=== PATIENT | female | born 1955 | race Caucasian/White ===

== ENCOUNTER 2017-06-11 13:59 | Outpatient (RCR) | payer MEDICARE, BC ==
[~2017-06-11 13:59] MED LIST: AMITRIPTYLINE100 MG PO; AUGMENTIN 875-1 EACH PO; CHERATUSSIN AC118 ML PO; LISINOPRIL10 MG PO; MORPHINE SULFAT30 M2 PO; NORCO 10MG-325MG1 EA PO; PROAIR HFA INH8.5 GM INH; REQUIP1 MG PO; REQUIP5 MG PO; SYNTHROID100 MCG PO; SYNTHROID125 MCG PO; TESSALON PERLE100 MG PO
== END 2017-06-13 ==
LOC: PT 13:59
PROVIDERS: ATTEND Specialist
DX: M25.551 Pain in right hip (principal); M16.11 Unilateral primary osteoarthritis, right hip; M70.61 Trochanteric bursitis, right hip
CPT/HCPCS: 97161; G8978; G8979

== ENCOUNTER → 2017-07-06 | Outpatient (CLI) | payer MEDICARE, BC ==
--- NOTE | 2017-07-06 08:52 | Diagnostic Imaging Report ---
PROCEDURE: Frontal and lateral views of the chest. COMPARISON: Chest 2 views 10/22/2016. INDICATIONS: PNEUMONIA FINDINGS: Lines/tubes: Partially visualized anterior cervical spine fusion hardware. Metallic lead projecting over the cervical spine. Lungs: The lungs are well inflated and clear. There is no evidence of pneumonia or pulmonary edema. Pleura: There is no pleural effusion or pneumothorax. Heart and mediastinum: The heart and the mediastinum are normal. Bones: No acute bony abnormality. Degenerative changes of the thoracic spine. IMPRESSION: No acute radiographic abnormality. Dictated by: Igor Smith M.D. on 07/06/2017 at 8:51 Electronically approved by: Igor Smith M.D. on 07/06/2017 at 8:51
== END ==
LOC: RAD 07:52
PROVIDERS: ATTEND Otolaryngology
DX: J18.9 Pneumonia, unspecified organism (principal)
CPT/HCPCS: 71046

== ENCOUNTER 2017-08-03 07:00 | Outpatient (RCR) | payer MEDICARE, BC | END 2017-08-11 | LOC: PT 07:00 | PROVIDERS: ATTEND Specialist | DX: M16.11 Unilateral primary osteoarthritis, right hip (principal); M25.551 Pain in right hip; M70.61 Trochanteric bursitis, right hip; R26.2 Difficulty in walking, not elsewhere classified; M62.81 Muscle weakness (generalized) | CPT/HCPCS: 97110 ×8; 97140 ×6; 97164; G8978; G8979 ==

== ENCOUNTER 2017-08-14 08:05 | Outpatient (RCR) | payer MEDICARE, BC | END 2017-09-10 | LOC: PT 08:05 | PROVIDERS: ATTEND Specialist | DX: M25.551 Pain in right hip (principal); M16.11 Unilateral primary osteoarthritis, right hip; M70.61 Trochanteric bursitis, right hip; M25.562 Pain in left knee; R26.2 Difficulty in walking, not elsewhere classified; M62.81 Muscle weakness (generalized) | CPT/HCPCS: 97110; 97139; 97140; G8981; G8982 ==

== ENCOUNTER → 2017-09-12 | Day surgery (SDC) | payer MEDICARE, BC ==
[~2017-09-12] MED LIST changes: +BUPIVACAINE 0.5%/EPI 30 ML SDV INJ ONE; +CEFAZOLIN SOD 2 GM/D5W 50ML 50 ML IV ONE; +DEXAMETHASONE SOD PHOS INJ 4 MG/ML VIAL ONE; +FAMOTIDINE 20 MG/2 ML VIAL IV ONE; +FENTANYL CITRATE/PF 100MCG/2 ML INJ ONE; +KETOROLAC TROMETHAMINE 30 MG/ML VIAL ONE; +LIDOCAINE HCL 2% LOCAL INJ 5 ML SDV VIAL INJ ONE; +METOCLOPRAMIDE HCL 10 MG/2ML VIAL ONE; +MIDAZOLAM HCL 2 MG/2 ML VIAL ONE; +ONDANSETRON HCL INJ 2 MG/ML VIAL ONE; +PROPOFOL IV EMULSION 10 MG/ML 20 ML VIAL ONE; +SEVOFLURANE INHAL SOLN 250 ML PEN BTL ONE
--- OUTSIDE RECORDS SUMMARY | 2017-09-12 07:43 | XMS REPORT ---
Author Author [facility] Address Unknown Phone Unavailable Care Team Providers Care News Cameraman Name Role Phone TYLER GOYAL Unavailable Unavailable Problems This patient has no known problems. Allergies, Adverse Reactions, Alerts This patient has no known allergies or adverse reactions. Medications This patient has no known medications. Results Test Description Test Time Test Comments Text Results Atomic Results Result Comments CHEST 2 VIEWS [place] [address] Patient Name: CRYSTAL MURILLO MR #: [id number] : 1955 Age/Sex: 61/F Req # : [id number] Adm Physician: Ordered by: JYOTSNA PINEDA, TYLER PINEDA Report #: [id number] Location: RAD Room/Bed: Procedure: [id number] DX/CHEST 2 VIEWS Exam Date: 07/06/17 Exam Time : 0805 REPORT STATUS: Signed PROCEDURE: Frontal and lateral views of the chest. COMPARISON: Chest 2 views 10/22/2016. INDICATIONS: PNEUMONIA FINDINGS: Lines/tubes: Partially visualized anterior cervical spine fusion hardware. Metallic lead projecting over the cervical spine. Lungs: The lungs are well inflated and clear. There is no evidence of pneumonia or pulmonary edema. Pleura: There is no pleural effusion or pneumothorax. Heart and mediastinum: The heart and the mediastinum are normal. Bones: No acute bony abnormality. Degenerative changes of the thoracic spine. IMPRESSION: No acute radiographic abnormality. Dictated by: Latesha Alvarez M.D. on 07/06/2017 at 8:51 Electronically approved by: Latesha Alvarez M.D. on 07/06/2017 at 8:51 Dictated By: LATESHA ALVAREZ MD 0 Transcribed By: ALICJA on 07/06/17850 COPY TO : TYLER GOYAL
--- OUTSIDE RECORDS SUMMARY | 2017-09-12 07:43 | XMS REPORT | Continuity of Care Document ---
Author Author [facility] Organization [facility] Address [address] [place] [address] Phone Unavailable Care Team Providers Care Pilot Supervisor Name Role Phone RJ EMERSON MD PCP Insurance Providers Guarantor Bina Fernando Address [address] [place] [address] Email [email or web address] Policy Number [id number] Subscriber's Name Bina Fernando Relationship 18 Self / Same As Patient Group Number [id number] Effective Date 17 Payer Medicare A & B Policy Number [id number] Subscriber's Name Bina Fernando Relationship 18 Self / Same As Patient Group Number [id number] Group Name RETIRED Effective Date 08 Advance Directives Directive Response Recorded Date/Time Does the patient have an advance directive? Yes 07/31/16 10:53am If yes, is advance directive on file with [facility]? No 05/05/15 3:00pm If not on file with [facility] will patient provide a copy? Yes 10/22/16 6:43am Do you have a Directive to Physician? Yes 08/14/17 8:03am Do you have a Medical Power of Post Form Remover? Yes 08/14/17 8:03am Do you have an out of hospital Do Not Resuscitate Order? No 08/14/17 8:03am Do you have any special needs we should be aware of? No 08/14/17 8:03am Do you have a support person here with you today? No 08/14/17 8:03am Did patient receive Notice of Privacy Practices? No 08/14/17 8:03am Did patient receive patient rights and responsibilities? No 08/14/17 8:03am Problems Medical Problem Onset Date Status Chest wall pain Unknown Acute Pneumonia 09/15/2014 Acute Medications Current Home Medications Medication Dose Units Route Directions Days Qty Instructions Start Date Amitriptyline Hcl 100 Mg Tablet 100 Mg Oral Bedtime Levothyroxine Sodium (Synthroid) 125 Mcg Tab 125 Mcg Oral Daily 30 Tab Lisinopril 10 Mg Tablet 10 Mg Oral Daily 30 Tab Ropinirole Hcl (Requip) 5 Mg Tablet 10 Mg Oral Daily Past Home Medications Medication Directions Ordered Status Acetaminophen/Hydrocodone Bitart ([place] 10MG-325MG*) 1 Ea Tab, 1 Tab Oral Four Times Daily as needed for Pain Discontinued Albuterol Sulfate (Proair Hfa Inhaler*) 8.5 Gm Inh, 1 Inh Inhalation Every 4 Hours as needed for Wheezing Discontinued Amoxicillin/Potassium Clav (Augmentin 875-125 Tablet) 1 Each Tablet, 875 Mg Oral Twice A Day Discontinued Benzonatate (Tessalon Perle) 100 Mg Capsule, 100 Mg Oral Every 6 Hours as needed for Cough Discontinued Guaifenesin/Codeine Phosphate (Cheratussin Ac Syrup) 118 Ml Liquid, 5 Ml Oral Every 4 Hours as needed for Cough Discontinued Levothyroxine Sodium (Synthroid) 100 Mcg Tab, 100 Mcg Oral Daily Discontinued Morphine Sulfate (Morphine Sulfate Er) 30 Mg Tablet.er, 30 Mg Oral Daily as needed for Pain Discontinued Ropinirole Hcl (Requip) 1 Mg Tablet, Unknown Dose Oral Three Times A Day Discontinued Social History Social History Problem Response Recorded Date/Time Onset Date Status Hx Psychiatric Problems No 09/15/2014 3:00pm Not Applicable Not Applicable Hx Eating Disorder No 09/15/2014 3:00pm Not Applicable Not Applicable Hx Substance Use Disorder No 09/15/2014 3:00pm Not Applicable Not Applicable Hx Depression No 09/15/2014 3:00pm Not Applicable Not Applicable Hx Alcohol Use No 09/15/2014 3:00pm Not Applicable Not Applicable Hx Substance Use Treatment No 09/15/2014 3:00pm Not Applicable Not Applicable Hx Physical Abuse No 09/15/2014 3:00pm Not Applicable Not Applicable Hospital Discharge Instructions No hospital discharge instruction information available. Plan of Care Prescriptions See Medication Section Functional Status No functional status information available. Allergies, Adverse Reactions, Alerts Allergen Type Severity Reaction Status Last Updated No Known Drug Allergies Allergy Unknown Active 10/08/08 Immunizations No immunization information available. Vital Signs No vital sign information available. Results No relevant diagnostic test, laboratory data and/or discharge summary information available. Procedures Procedure Status Date Provider(s) SIGMOIDOSCOPY & POLYPECTOMY Completed 11/20/16 DHRUV STERN MD X-ray of chest, two views Active 07/06/17 TYLER GOYAL Encounters Encounter Location Arrival/Admit Date Discharge/Depart Date Attending Provider Discharged [facility]ring [facility] 08/14/17 8:05am 09/10/17 11:59pm BRIAN MCKEON MD Discharged [facility]ring [facility] 07/12/17 4:32pm 08/11/17 11:59pm BRIAN MCKEON MD Registered Clinic [facility] 07/06/17 7:52am TYLER GOYAL Discharged [facility]ring [facility] 06/11/17 1:59pm 06/13/17 11:59pm BRIAN MCKEON MD Registered Clinic [facility] 12/25/16 1:16pm RJ EMERSON MD Discharged [facility]ring [facility] 12/13/16 2:03pm 01/11/17 11:59pm BRIAN MCKEON MD Registered Surgical Day Care [facility] 11/20/16 6:01am DHRUV STERN MD Discharged [facility]ring [facility] 11/16/16 2:03pm 12/11/16 11:59pm BRIAN MCKEON MD
--- NOTE | 2017-09-13 05:59 | Operative Report ---
DATE OF PROCEDURE: September 12, 2017 PREOPERATIVE DIAGNOSES 1. Left knee medial meniscus tear. 2. Left knee degenerative joint disease of the knee. POSTOPERATIVE DIAGNOSES 1. Left knee medial meniscus tear. 2. Left knee degenerative joint disease of the knee. OPERATIONS/PROCEDURES PERFORMED 1. The patient underwent a left knee examination under anesthesia. 2. Left knee arthroscopy. 3. Left knee partial medial meniscectomy. 4. Left knee chondroplasty of the patella, the trochlea, the medial femoral condyle, the medial tibial plateau, the lateral femoral condyle, and lateral tibial plateau. COMMUNITY HEALTH SPECIALIST: None. ANESTHESIA: General endotracheal intubation anesthesia. IV FLUIDS: Per the anesthesia record. BRIEF DESCRIPTION OF THE PATIENT'S OPERATIVE PROCEDURE: Ms. Fernando was taken to the operating room and placed in the supine position on the operating table. Following induction of general anesthesia, as well as endotracheal intubation, the patient's left lower extremity was examined under anesthesia. She was found to have a moderate effusion within the knee joint. Motion of the knee joint was full. The ligaments were stable. The patient's lower extremity was prepped and draped in the standard surgical fashion. A 2-portal technique used to provide this patient arthroscopic evaluation of the knee joint. The scope was placed within the knee joint atraumatically. 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 There were no loose bodies in the medial or lateral gutters. The scope was advanced in the medial compartment. Examination of the medial compartment demonstrated a torn and macerated medial meniscus. There was also chondromalacia of the articulating surfaces. A combination of biting forceps and motorized shaver were used to resect the torn portion of the meniscus. Chondroplasties of the medial femoral condyle and medial tibial plateau were performed at this time. The scope was advanced to the intercondylar notch. The anterior cruciate ligament was identified and found to be intact. Scope was then advanced into the lateral compartment. Examination of the lateral compartment demonstrated chondromalacia of the articulating surfaces. Chondroplasties of the lateral femoral condyle and lateral tibial plateau were performed at this time. Scope was then placed in the suprapatellar pouch, and chondroplasty of the patella and trochlea were performed. The knee was then deflated of its normal saline. Each of the portal sites were closed using 4-0 nylon suture. The portal sites as well as the knee itself were then injected with 0.5% Marcaine with epinephrine. Sterile dressings were applied. The patient was then awakened and taken to the postanesthesia care unit in stable condition. Job#: [id number] CEZAR
== END | disposition home or self-care (01) ==
LOC: OR 07:41
PROVIDERS: ATTEND Specialist
DX: S83.262A Peripheral tear of lateral meniscus, current injury, left knee, initial encounter (principal); M17.12 Unilateral primary osteoarthritis, left knee; K21.9 Gastro-esophageal reflux disease without esophagitis; J45.909 Unspecified asthma, uncomplicated; I10 Essential (primary) hypertension; K58.9 Irritable bowel syndrome, unspecified
CPT/HCPCS: 29881; G0289; 93005; J1100; J1885; J2001; J2250; J2405; J2765

== ENCOUNTER 2017-10-16 11:13 | Outpatient (RCR) | payer MEDICARE, BC ==
[~2017-10-16 11:13] MED LIST changes: -BUPIVACAINE 0.5%/EPI 30 ML SDV INJ ONE; -CEFAZOLIN SOD 2 GM/D5W 50ML 50 ML IV ONE; -DEXAMETHASONE SOD PHOS INJ 4 MG/ML VIAL ONE; -FAMOTIDINE 20 MG/2 ML VIAL IV ONE; -FENTANYL CITRATE/PF 100MCG/2 ML INJ ONE; -KETOROLAC TROMETHAMINE 30 MG/ML VIAL ONE; -LIDOCAINE HCL 2% LOCAL INJ 5 ML SDV VIAL INJ ONE; -METOCLOPRAMIDE HCL 10 MG/2ML VIAL ONE; -MIDAZOLAM HCL 2 MG/2 ML VIAL ONE; -ONDANSETRON HCL INJ 2 MG/ML VIAL ONE; -PROPOFOL IV EMULSION 10 MG/ML 20 ML VIAL ONE; -SEVOFLURANE INHAL SOLN 250 ML PEN BTL ONE
== END 2017-11-10 ==
LOC: PT 11:13
PROVIDERS: ATTEND Specialist
DX: M25.562 Pain in left knee (principal); M25.662 Stiffness of left knee, not elsewhere classified; M25.462 Effusion, left knee; M62.81 Muscle weakness (generalized)
CPT/HCPCS: 97010; 97110; 97162; G8978; G8979; 97139

== ENCOUNTER 2017-12-07 14:00 | Outpatient (RCR) | payer MEDICARE, BC | END 2017-12-11 | LOC: PT 14:00 | PROVIDERS: ATTEND Specialist | DX: M25.562 Pain in left knee (principal); M25.462 Effusion, left knee; M25.662 Stiffness of left knee, not elsewhere classified; M62.81 Muscle weakness (generalized) | CPT/HCPCS: 97110 ×7; 97139; 97140; G8978; G8979 ==

== ENCOUNTER 2017-12-18 15:09 | Outpatient (RCR) | payer MEDICARE, BC | END 2018-01-11 | LOC: PT 15:09 | PROVIDERS: ATTEND Specialist | DX: M25.562 Pain in left knee (principal); M25.462 Effusion, left knee; M25.662 Stiffness of left knee, not elsewhere classified; M62.81 Muscle weakness (generalized) | CPT/HCPCS: 97110; 97139; G8978; G8979 ==

== ENCOUNTER 2018-03-26 14:00 | Outpatient (RCR) | payer BC, MEDICARE | END 2018-04-12 | LOC: PT 14:00 | PROVIDERS: ATTEND Specialist | DX: M25.562 Pain in left knee (principal); M25.662 Stiffness of left knee, not elsewhere classified; M62.81 Muscle weakness (generalized); R26.9 Unspecified abnormalities of gait and mobility | CPT/HCPCS: 97110; 97162; G8978; G8979 ==

== ENCOUNTER 2018-06-26 15:15 | Outpatient (RCR) | payer MEDICARE | END 2018-07-11 | LOC: PT 15:15 | PROVIDERS: ATTEND Internal Medicine | DX: M17.12 Unilateral primary osteoarthritis, left knee (principal); M25.562 Pain in left knee; M25.662 Stiffness of left knee, not elsewhere classified; M62.81 Muscle weakness (generalized) ==

== ENCOUNTER 2018-08-08 10:00 | Outpatient (RCR) | payer MEDICARE | END 2018-08-11 | LOC: PT 10:00 | PROVIDERS: ATTEND Internal Medicine | DX: M25.562 Pain in left knee (principal); M25.662 Stiffness of left knee, not elsewhere classified; M62.81 Muscle weakness (generalized) ==

== ENCOUNTER 2018-09-03 15:15 | Outpatient (RCR) | payer MEDICARE, OTHER | END 2018-09-10 | LOC: PT 15:15 | PROVIDERS: ATTEND Internal Medicine | DX: M25.562 Pain in left knee (principal); M25.662 Stiffness of left knee, not elsewhere classified; M62.81 Muscle weakness (generalized) ==

== ENCOUNTER → 2018-10-11 | Outpatient (RCR) | payer MEDICARE, OTHER | LOC: PT 09-13 14:09 | PROVIDERS: ATTEND Internal Medicine | DX: M25.562 Pain in left knee (principal); M25.662 Stiffness of left knee, not elsewhere classified; M62.81 Muscle weakness (generalized) | CPT/HCPCS: 97139 ==

== ENCOUNTER → 2019-02-10 | Outpatient (RCR) | payer MEDICARE, OTHER | LOC: PT 02-03 14:19 | PROVIDERS: ATTEND Specialist | DX: M25.551 Pain in right hip (principal); M70.61 Trochanteric bursitis, right hip; M54.5 Low back pain; M62.81 Muscle weakness (generalized) ==

== ENCOUNTER 2019-03-05 16:55 | Outpatient (RCR) | payer MEDICARE, OTHER | END 2019-03-13 | LOC: PT 16:55 | PROVIDERS: ATTEND Specialist | DX: M25.551 Pain in right hip (principal); M70.61 Trochanteric bursitis, right hip; M54.5 Low back pain; M62.81 Muscle weakness (generalized) ==

== ENCOUNTER 2019-03-25 15:07 | Outpatient (RCR) | payer MEDICARE, OTHER | END 2019-04-12 | LOC: PT 15:07 | PROVIDERS: ATTEND Specialist | DX: M70.61 Trochanteric bursitis, right hip (principal); M25.551 Pain in right hip; M62.81 Muscle weakness (generalized); M54.5 Low back pain ==

== ENCOUNTER → 2019-04-23 | Outpatient (CLI) | payer MEDICARE, OTHER ==
--- NOTE | 2019-05-01 10:19 | Diagnostic Imaging Report ---
#[id number] - MGSCRBIL #BILATERAL DIGITAL SCREENING MAMMOGRAM WITH CAD: 04/23/2019 CLINICAL: Routine screening. Comparison is made to exam dated: 12/25/2016 mammogram - [facility]. Current study contains 8 films. The tissue of both breasts is predominantly fatty. Current study was also evaluated with a Computer Aided Detection (CAD) system. Bilateral retropectoral breast implants are intact. Benign appearing calcifications are noted bilaterally. No significant masses, calcifications, or other findings are seen in either breast. IMPRESSION: BENIGN There is no mammographic evidence of malignancy. A 1 year screening mammogram is recommended. The patient will be notified by letter of the results. ODILIA ZAYAS M.D. ct/penrad:04/30/2019 17:26:45 Audio Tape Librarian: Libby DELEON(R)(M), [facility] letter sent: Normal Exam Mammogram BI-RADS: 2 Benign
== END ==
LOC: MAMMO 13:00
PROVIDERS: ATTEND Internal Medicine
DX: Z12.31 Encounter for screening mammogram for malignant neoplasm of breast (principal)
CPT/HCPCS: 77067